=== PATIENT | male | born 1965 | race Caucasian/White ===

== ENCOUNTER 2017-04-06 18:29 | Emergency (ER) | payer OTHER ==
[2017-04-06 18:37] VITALS: TEMP 98.2; O2SAT 92
--- NOTE | 2017-04-06 18:51 | EDPHY ---
H & P Stated Complaint: 2 weeks sob/congestion/cp had di dimer + at pc HPI/ROS: CHIEF COMPLAINT: Shortness of breath, elevated d-dimer HISTORY OF PRESENT ILLNESS: The patient is a 51 y/o male complaining of shortness of breath, congestion, and chest pain for 2 weeks. The congestion worsens during the night, and he coughs up sputum in the morning. Today he saw his PCP, ANDRES Delacruz, in [place] at 10:00, 9 hours ago. They did blood work, and discovered that the patient had an elevated d-dimer. He was notified of this abnormal result and advised to come to the ED for CTA of chest. His chest pain is mild and does not bother him unless he aggravates his chest by palpating it. Denies leg swelling. Is not currently feeling short of breath. No recent fever. No recent travel or risk factors for VTE. ANDRES Delacruz ([phone]) REVIEW OF SYSTEMS: A ten point review of systems was performed and is negative with the exception of the items mentioned in the HPI. Past medical history: 1. Gout 2. Alcohol abuse Past surgical history: Denies Family history: Denies Social history: Lives in [place], works as a property loss insurance claim adjuster, daily alcohol use General Appearance: Alert. Vital signs reviewed. Blood pressure 140/92. Eyes: Pupils equal and round, no conjunctival injection, no discharge. Anicteric. ENT, Mouth: Mucous membranes are moist, no oropharyngeal erythema or edema. Neck: No lymphadenopathy, supple. Trachea midline. Respiratory: Lungs are clear to auscultation; no wheezes, rales, or rhonchi. Cardiovascular: Regular rate and rhythm; no murmur, rub, or gallop. Gastrointestinal: Abdomen is obese soft and nontender, no masses or organomegaly, bowel sounds normal. Skin: Warm and dry, no rashes on exposed skin, normal color. Back: Nontender to palpation over the thoracolumbar spine. No CVAT. Extremities: No lower extremity edema, no calf tenderness or swelling. Neurological: Alert and oriented. Moving all four extremities easily and equally. Psychiatric: Normal affect. - Personal History Current Tetanus/Diphtheria Vaccine: No - Medical/Surgical History Hx Asthma: No Hx Chronic Respiratory Disease: No Hx Diabetes: No Hx Cardiac Disease: No Hx Renal Disease: No Hx Cirrhosis: No Hx Alcoholism: No Hx HIV/AIDS: No Hx Splenectomy or Spleen Trauma: No Other PMH: gout - Social History Smoking Status: Never smoked Constitutional: Initial Vital Signs Temperature (C) 36.8 C 04/06/17 18:35 Heart Rate 86 04/06/17 18:35 Respiratory Rate 20 04/06/17 18:35 Blood Pressure 140/92 H 04/06/17 18:35 O2 Sat (%) 92 04/06/17 18:35 O2 Delivery Mode Room Air Allergies/Adverse Reactions: No Known Allergies Allergy (Verified 04/06/17 18:34) Home Medications: Medication Instructions Recorded Allopurinol 11/29/15 Prednisone 04/06/17 Medical Decision Making - Diagnostics Imaging: Discussed imaging studies w/ drapery examiner Radiologist, I viewed and interpreted images myself ED Course/Re-evaluation: The patient is a 51 y/o male presenting with shortness of breath and chest pain for 2 weeks. His PCP tested his D-dimer which was elevated. Chest x-ray, EKG, and labs ordered. 1858: The 12 lead EKG was interpreted by myself sinus rhythm with a rate of 82. See hard copy and/or "tracemaster" electronic copy for interpretation. 1906: Consulted with the physician from the patient's PCP office. The D-dimer was 0.66 earlier today. 1945: Patient's d-dimer is 0.55; angio chest CT ordered. 2028: Spoke with radiologist regarding patient's angio chest CT, there is aortic aneurysmal dilation measuring 4.5 x 4.6 of the ascending thoracic aorta. No PE. 2106: Reassessed patient and discussed imaging and laboratory findings. I have advised him to follow up with his PCP tomorrow without fail regarding his thoracic aortic aneurysm. He is not currently experiencing chest pain or dyspnea. I do not suspect rupture or dissection. He is not tachycardic or tachypneic. He will also need to have his blood pressure rechecked tomorrow and will likely require antihypertensive medication. I stressed to him the importance of following up on this thoracic aortic aneurysm and explained to him that, if it continues to expand, this can be a dangerous and life- threatening situation. I have given him resources regarding alcohol abuse. Return precautions provided ; patient is comfortable with this plan. Differential Diagnosis: Shortness of breath and chest pain including but not limited to aneurysmal rupture or dissection, ACS, pulmonary infectious process, COPD, asthma, pulmonary embolus and congestive heart failure. - Data Points Laboratory Results: Laboratory Results 04/06/17 18:45 04/06/17 18:45 Departure - Departure Disposition: Home, Routine, Self-Care Clinical Impression: Alcohol abuse URI (upper respiratory infection) Qualifiers: URI type: unspecified viral URI Qualified Code(s): J06.9 - Acute upper respiratory infection, unspecified Aneurysm, thoracic aortic Qualifiers: Presence of rupture: without rupture Qualified Code(s): I71.2 - Thoracic aortic aneurysm, without rupture Condition: Good Instructions: Chest Pain (ED), Upper Respiratory Infection (ED), Abuse of Alcohol (ED), Thoracic Aortic Aneurysm (ED) Additional Instructions: You have an aortic aneurysmal dilation of the ascending thoracic aorta. Follow up with your PCP tomorrow without fail. You need to have your blood pressure rechecked tomorrow. We would like you to be seen by cardiology for consideration of additional testing within the next 3 days. Please contact the gas distribution plant operator you have been referred to schedule this appointment as soon as possible. Their offices are typically open from 8:30am- 5pm M-F. Please return to the Emergency Department immediately for any recurrent chest pain, difficulty breathing or other concerns. Please follow up with alcoholics anonymous for your alcohol abuse. Referrals: [facility] [Outside] - As per Instructions Tomas Desai MD [Medical Doctor] - As per Instructions So Delacruz PA [Physician School Operations Manager] - As per Instructions Report Scribed for: Melida Rosales Report Scribed by: Evelyn Coreas Date of Report: 04/06/17 Time of Report: 19:49 Physician Review and Approval Statement: 04/06/17 18:51 Portions of this note were transcribed by the lpn medical assistant. I, Dr. Melida Rosales, personally performed the history, physical exam, and medical decision- making; and confirmed the accuracy of the information in the transcribed note.
--- NOTE | 2017-04-06 19:01 | CPEKG ---
Heart Rate: 82 RR Interval: 732 P-R Interval: 164 QRSD Interval: 96 QT Interval: 384 QTC Interval: 449 P Lowes: 25 QRS Lowes: -16 T Wave Lowes: -2 EKG Severity - OTHERWISE NORMAL ECG - EKG Impression: SINUS RHYTHM EKG Impression: BORDERLINE LEFT AXIS DEVIATION Electronically Signed By: Melida Rosales 06-Apr-2017 23:58:30
[2017-04-06 19:03] LABS: PLATELET COUNT 131 10^3/uL (150-400)
[2017-04-06] MEDS ORDERED: IOPAMIDOL (ISOVUE 370) 100 ML BTL IV ONE (19:49)
[2017-04-06 21:34] VITALS: BP 122/93; PULSE 91; RESP 16
== END 2017-04-06 21:27 | disposition home or self-care (01) ==
DX: I71.2 Thoracic aortic aneurysm, without rupture (principal); J06.9 Acute upper respiratory infection, unspecified; F10.10 Alcohol abuse, uncomplicated
CPT/HCPCS: Q9967

== ENCOUNTER 2018-01-23 20:18 | Emergency (ER) | payer OTHER ==
--- NOTE | 2018-01-23 20:27 | EDPHY ---
H & P Time Seen by Provider: 01/23/18 20:23 HPI/ROS: HPI: This is a 52-year-old male who presents with Chief Complaint: [facility] hold-alcohol intoxication Location: body Quality: Alcohol intoxication Duration: Today Signs and Symptoms: no fever, no nausea, no vomiting, no hematemesis, no blood in stool, no abdominal bloating, no diarrhea, no back pain, no urinary symptoms , no testicular/groin pain, no indigestion, no chest pain, no shortness of breath Timing: Constant Severity: Moderate Context: Patient presents via EMS accompanied by police on [facility] for alcohol intoxication. Initially police responded to the RTD and patient unable to ambulate on own. EMS arrived and tried to ambulate the patient but he required moderate assistance. He reports that he drank a 0.5 gallon of Tequila today. Denies any drug use. He reports that he does not feel nausea, vomiting, abdominal pain, chest pain, shortness of breath. Modifying Factors: EMS unable to obtain vitals in the ambulance as patient was uncooperative Comment: ROS: A comprehensive 10 system review of systems is otherwise negative aside from elements mentioned in the history of present illness. MEDICAL/SURGICAL/SOCIAL HISTORY: Medical history: Hypertension, gout Surgical history: Denies Social history: Alcohol use. No Tobacco use. Denies drug use. Family history noncontributory. CONSTITUTIONAL: Intoxicated, middle-aged male, cooperative, awake and alert, no obvious distress HEENT: Atraumatic and normocephalic, PERRL, EOMI. Nares patent; no rhinorrhea; no nasal mucosal edema. Tympanic membranes clear. Oropharynx clear, no exudate and moist pink mucosa. Airway patent. No lymphadenopathy. No meningismus. Cardiovascular: Normal S1/S2, regular rate, regular rhythm, without murmur rub or gallop. PULMONARY/CHEST: Symmetrical and nontender. Clear to auscultation bilaterally. Good air movement. No accessory muscle usage. ABDOMEN: Soft, nondistended, nontender, no rebound, no guarding, no peritoneal signs, no masses or organomegaly. No CVAT. EXTREMITIES: 2/2 pulses, strength 5/5, no deformities, no clubbing, no cyanosis or edema. NEUROLOGICAL: no focal neuro deficits. GCS 15. Slurring words. Alert and oriented x3. Fine and large motor deficits noted. SKIN: Warm and dry, no erythema. no rash. Good capillary refill. Source: Patient, Police, RN/MD, EMS Exam Limitations: Intoxication - Medical/Surgical History Hx Asthma: No Hx Chronic Respiratory Disease: No Hx Diabetes: No Hx Cardiac Disease: No Hx Renal Disease: No Hx Cirrhosis: No Hx Alcoholism: No Hx HIV/AIDS: No Hx Splenectomy or Spleen Trauma: No Other PMH: gout - Social History Smoking Status: Never smoked Constitutional: Initial Vital Signs Temperature (C) 36.6 C 01/23/18 20:31 Heart Rate 96 01/23/18 20:31 Respiratory Rate 16 01/23/18 20:31 Blood Pressure 116/96 H 01/23/18 20:31 O2 Sat (%) 94 01/23/18 20:31 O2 Delivery Mode Room Air Allergies/Adverse Reactions: No Known Allergies Allergy (Verified 01/23/18 20:30) Home Medications: Medication Instructions Recorded Allopurinol 11/29/15 Prednisone 04/06/17 Medical Decision Making ED Course/Re-evaluation: Agree with [facility]. Vital signs obtained in stable upon arrival. Placed on youth nutritional monitor. At this time no further interventions required. Patient given warm blanket and fell asleep in the hallway. Once patient is more sober, will reassess. 2104: Patient Asking to leave. Ambulating without assistance Police called. Patient is appropriate to be discharged to the [facility] 2129: [place] police have arrived to transport patient to the [facility]. This patient was seen under the supervision of my secondary supervising physician. I evaluated care for this patient independently. Discussed this patient with Dr. Oquendo. Differential Diagnosis: Differential diagnosis includes but is not limited to major depression, anxiety disorder, schizophrenia, bipolar disorder, intoxicant use, suicidal ideation, psychosis, scooter. Departure - Departure Disposition: Home, Routine, Self-Care Clinical Impression: Alcoholic intoxication without complication Condition: Good Instructions: Alcohol Intoxication (ED), Abuse of Alcohol (ED) Additional Instructions: Please refrain from drinking alcohol excessively. Patient is medically cleared to be discharged to the [facility]. Referrals: [facility] [Outside] - As per Instructions
[2018-01-23 21:32] VITALS: BP 143/74
== END 2018-01-23 21:32 | disposition home or self-care (01) ==
LOC: EDUNIT# → EDBD
DX: F10.129 Alcohol abuse with intoxication, unspecified (principal)